=== PATIENT | female | born 1990 | race Two or more races ===

== ENCOUNTER 2023-05-20 16:53 | Emergency (ER) | payer OTHER ==
[~2023-05-20] VITALS: Ht 172.7 cm; Wt 67.6 kg
== END 2023-05-20 21:13 | disposition home or self-care (01) ==
LOC: ER 16:53
DX: S05.02XA Injury of conjunctiva and corneal abrasion without foreign body, left eye, initial encounter (principal); X58.XXXA Exposure to other specified factors, initial encounter; Y93.89 Activity, other specified; Y92.89 Other specified places as the place of occurrence of the external cause; Y99.8 Other external cause status